=== PATIENT | female | born 1985 | race Caucasian/White ===

== ENCOUNTER 2019-04-10 11:26 | Emergency (ER) | payer SELFPAY ==
[~2019-04-10] VITALS: Ht 165.1 cm; Wt 86.6 kg
[2019-04-10 12:03] VITALS: BP 135/86; Ht 165.1 cm; Wt 86.6 kg
[2019-04-10 12:49] LABS: PLATELET COUNT 302 x10^3mcL (130-400); RED CELL DISTRIBUTION WIDTH 12.8 % (11.5-14.5)
[2019-04-10 12:50] LABS: BASOPHIL % 2.2 % (0-2)
[2019-04-10 14:11] LABS: microscopic required? YES; urine erythrocyte 2+ (NEGATIVE)
== END 2019-04-10 15:32 | disposition home or self-care (01) ==
LOC: ED 11:26
DX: N93.9 Abnormal uterine and vaginal bleeding, unspecified (principal); Z98.890 Other specified postprocedural states
CPT/HCPCS: 36415

== ENCOUNTER 2019-05-28 04:55 | Emergency (ER) | payer MEDICAID ==
[~2019-05-28] VITALS: Ht 165.1 cm; Wt 86.0 kg
[2019-05-28 08:16] LABS: BASOPHIL % 0.6 % (0-2); PLATELET COUNT 314 x10^3mcL (130-400); RED CELL DISTRIBUTION WIDTH 12.9 % (11.5-14.5)
[2019-05-28 09:20] VITALS: BP 118/69
== END 2019-05-28 09:20 | disposition home or self-care (01) ==
LOC: ED 04:55
PROVIDERS: Emergency Medicine
DX: O20.9 Hemorrhage in early pregnancy, unspecified (principal); Z3A.00 Weeks of gestation of pregnancy not specified
CPT/HCPCS: 36415

== ENCOUNTER 2019-06-19 10:07 | Emergency (ER) | payer MEDICAID ==
[~2019-06-19] VITALS: Ht 165.1 cm; Wt 85.7 kg
[2019-06-19 10:35] VITALS: Ht 165.1 cm; Wt 85.7 kg
[2019-06-19 13:00] VITALS: BP 120/77
== END 2019-06-19 13:00 | disposition home or self-care (01) ==
LOC: ED 10:07
DX: S60.222A Contusion of left hand, initial encounter (principal); W18.39XA Other fall on same level, initial encounter; Y93.89 Activity, other specified; Y92.89 Other specified places as the place of occurrence of the external cause; Y99.8 Other external cause status; Z98.890 Other specified postprocedural states